=== PATIENT | male | born 1955 | race Caucasian/White ===

== ENCOUNTER 2020-02-29 12:20 | Emergency (ER) | payer BC ==
[2020-02-29] MEDS: Lidocaine 1% 30 ML SDV INJECT ONE (12:40)
--- NOTE | 2020-02-29 13:05 | EDM.PDOC ---
ED HPI GENERAL MEDICAL PROBLEM - General Chief Complaint: Laceration Time Seen by Provider: 02/29/20 12:35 Source of Information: Reports: Patient History Limitations: Reports: No Limitations - History of Present Illness INITIAL COMMENTS - FREE TEXT/NARRATIVE: Pt. sustained a laceration to palm of L hand. He was drilling through metal. The metal started spinning on the bit and cut his hand. Injury is isolated to palm of L hand. Tetanus is UTD. Onset: Today Onset Date: 02/29/20 Location: Reports: Upper Extremity, Left Quality: Reports: Sharp Left Hand Pain Score (Numeric/FACES): 6 - Related Data Allergies Allergy/AdvReac Type Severity Reaction Status Date / Time No Known Allergies Allergy Verified 02/29/20 12:26 Home Meds: Home Meds . [No Known Home Meds] 02/29/20 [History] Past Medical History - Past Health History Medical/Surgical History: Denies Medical/Surgical History Social & Family History - Tobacco Use Smoking Status *Q: Never Smoker ED ROS GENERAL - Review of Systems Review Of Systems: Comprehensive ROS is negative, except as noted in HPI. ED EXAM, SKIN/RASH Exam: See Below Exam Limited By: No Limitations General Appearance: Alert, WD/WN, No Apparent Distress Extremities: Other (4 cm laceration to palm of L hand near base of thumb. No injury to underlying structures. CMS intact. ROM is normal. ) Neurological: Alert, Oriented, CN II-XII Intact, Normal Cognition ED SKIN PROCEDURES - Laceration/Wound Repair Left Hand Appearance: Subcutaneous, Clean Distal NVT: Neuro & Vascular Intact, No Tendon Injury Anesthetic Type: Local Local Anesthesia - Lidocaine (Xylocaine): 1% Plain Local Anesthetic Volume: 4cc Skin Prep: Chlorhexidine (Hibiciens), Saline Exploration/Debridement/Repair: Wound Explored, Explored to Base Closed with: Sutures Lac/Wound length In cm: 4 Suture Size: 4-0 # of Sutures: 4 Suture Type: Nylon Course - Vital Signs Last Recorded V/S: Last Vital Signs Temp 35.9 C L 02/29/20 12:26 Pulse 65 02/29/20 12:26 Resp 16 02/29/20 12:26 BP 163/78 H 02/29/20 12:26 Pulse Ox 96 02/29/20 12:26 - Orders/Labs/Meds Meds: Medications Discontinued Medications Generic Name Dose Route Start Last Admin Trade Name Brea PRN Reason Stop Dose Admin Lidocaine HCl 30 ml 02/29/20 12:33 02/29/20 12:40 Xylocaine-Mpf 1% INJECT 02/29/20 12:34 30 ml ONETIME ONE Administration Departure - Departure Time of Disposition: 13:04 Disposition: Home, Self-Care 01 Clinical Impression: Laceration - Discharge Information Instructions: Laceration Care, Adult Referrals: Neetu Patterson DO [Primary Care Provider] - Forms: ED Department Discharge Additional Instructions: Keep dressing on for 24 hours. After this, keep open to air as much as possible. Sutures removal in clinic in 12 days, sooner if redness, swelling, or discharge from the area. Sepsis Event Note - Evaluation Sepsis Screening Result: No Definite Risk - Focused Exam Vital Signs: Vital Signs Temp Pulse Resp BP Pulse Ox 02/29/20 12:26 35.9 C L 65 16 163/78 H 96 Date Exam was Performed: 02/29/20 Time Exam was Performed: 12:59 - Problem List Review Problem List Initiated/Reviewed/Updated: Yes - Assessment/Plan Plan: Keep dressing on for 24 hours. After this, keep open to air as much as possible. Sutures removal in clinic in 12 days, sooner if redness, swelling, or discharge from the area.
== END 2020-02-29 13:10 | disposition home or self-care (01) ==
LOC: VM.ED 12:20
DX: S61.412A Laceration without foreign body of left hand, initial encounter (principal); W26.8XXA Contact with other sharp object(s), not elsewhere classified, initial encounter
CPT/HCPCS: 12002; 99282-25; J2001

== ENCOUNTER 2021-07-25 13:36 | Emergency (ER) | payer BC ==
[2021-07-25] MEDS ORDERED: Sodium Chloride 0.9% 10 ML Syringe FLUSH PRN (13:58)
--- NOTE | 2021-07-25 14:05 | EDM.PDOC ---
ED HPI GENERAL MEDICAL PROBLEM - General Chief Complaint: Drug or Alcohol Abuse Stated Complaint: CONFUSED Time Seen by Provider: 07/25/21 13:44 Source of Information: Reports: Patient, Family - History of Present Illness INITIAL COMMENTS - FREE TEXT/NARRATIVE: Jarret is a 65 y/o male who is brought to the ER by his family today for a 3 day history of confusion and could sx. 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 He is unsure why, but reports since he got home on Monday, he has hardly eaten anything and has been coughing. He does admit to drinking alcohol over the last few days. He has been confused for family and quite unsteady. He has however had a problem with his balance since he had COVID in 2019. No fever. He does have high blood pressure and has taken his meds. Only other med he has taken is ibuprofen. reports that he has not been showering and she assisted him today to shower prior to coming to the ER. - Related Data Allergies Allergy/AdvReac Type Severity Reaction Status Date / Time No Known Allergies Allergy Verified 07/25/21 14:08 Home Meds: Home Meds Benzonatate 100 - 200 mg PO Q8H PRN #60 capsule 07/25/21 [Rx] lisinopriL [Lisinopril] 20 mg PO DAILY 07/25/21 [History] Past Medical History - Past Health History Medical/Surgical History: Denies Medical/Surgical History Review of Systems - Review of Systems Review Of Systems: See Below Constitutional: Reports: No Symptoms Eyes: Reports: No Symptoms Ears: Reports: No Symptoms Nose: Reports: No Symptoms Mouth/Throat: Reports: No Symptoms Respiratory: Reports: Cough Cardiovascular: Reports: No Symptoms GI/Abdominal: Reports: Decreased Appetite Genitourinary: Reports: No Symptoms Musculoskeletal: Reports: No Symptoms Skin: Reports: No Symptoms Neurological: Reports: Confusion, Difficulty Walking Psychiatric: Reports: Confusion ED EXAM, GENERAL - Physical Exam Exam: See Below General Appearance: Alert, WD/WN (adult male, dressed apprpriately and answers questions. ), No Apparent Distress, Other (Smells fo ETOH.) Eye Exam: Bilateral Eye: PERRL Ears: Normal External Exam, Normal Canal, Hearing Grossly Normal, Normal TMs Nose: Normal Inspection, Normal Mucosa Throat/Mouth: Normal Inspection, Normal Lips, Normal Oropharynx, Normal Voice Head: Atraumatic, Normocephalic Neck: Normal Inspection, Supple, Non-Tender Respiratory/Chest: No Respiratory Distress, Lungs Clear, Chest Non-Tender, Other (Note occasional cough) Cardiovascular: Normal Peripheral Pulses, Regular Rate, Rhythm, No Murmur GI/Abdominal: Normal Bowel Sounds, Soft, Non-Tender (Male) Exam: Deferred Rectal (Males) Exam: Deferred Back Exam: Normal Inspection, Full Range of Motion Extremities: Normal Inspection, Normal Range of Motion, Normal Capillary Refill Neurological: Alert, CN II-XII Intact, Normal Cognition Psychiatric: Normal Affect Skin Exam: Warm, Dry, Intact, Normal Color, No Rash #1 Interpretation EKG Date: 07/25/21 Time: 14:20 Rhythm: NSR Rate (Beats/Min): 65 [place]: Normal P-Wave: Present QRS: Normal ST-T: Normal QT: Normal EKG Interpretation Comments: NSR Course - Vital Signs Text/Narrative:: The patient was seen by the [facility]. Labs and CT ordered. Suspect heavy ETOH use, but will exclude other causes of confusion. 1520 COVID=positive. XR Chest negative, Head CT negative. Other labs pending. 1540 Note FOOV=741. Suspect ETOH as reason for confusion. Lactic Acid elevated at 3.4, but BUN=31, suspect dehydration. CRP=5.1, mostly likely early in COVID course. Findings discussed with the patient and his family. Will give him a liter of NS and thiamine 100mg IVP. 1655 IV fluids done. Clinically sober and can walk in room and talk and answer questions. Will send home with Albuterol inhaler. Written instructions were given and the patient left the ER in stable condition. Last Recorded V/S: Last Vital Signs Temp 36.6 C 07/25/21 13:36 Pulse 82 07/25/21 13:36 Resp 16 07/25/21 13:36 BP 130/73 07/25/21 13:36 Pulse Ox 94 L 07/25/21 13:36 - Orders/Labs/Meds Orders: Active Orders 24 hr Category Date Time Status Saline Lock Insert [OM.PC] Stat Oth 07/25/21 13:59 Ordered Labs: Laboratory Tests 07/25/21 07/25/21 07/25/21 Range/Units 14:30 14:36 14:36 WBC 7.3 (4.0-10.0) x10^3/uL RBC 4.25 L (4.5-6.0) x10^6/uL Hgb 16.1 (14.0-18.0) g/dL Hct 42.9 (40.0-52.0) % MCV 100.9 H (78.0-93.0) fL MCH 37.9 H (26.0-32.0) pg MCHC 37.5 H (32.0-36.0) g/dL RDW Coeff of Vero 13.2 (10.0-15.0) % Plt Count 221 (130-400) x10^3/uL Immature Gran % (Auto) 0.40 (0.00-0.43) % Neut % (Auto) 54.3 (50.0-80.0) % Lymph % (Auto) 33.3 (25.0-50.0) % [place] % (Auto) 11.6 H (2.0-11.0) % Eos % (Auto) 0.0 (0.0-4.0) % Baso % (Auto) 0.4 (0.2-1.2) % Neut # (Auto) 4.0 (1.8-7.7) x10^3/uL Lymph # (Auto) 2.4 (1.0-4.8) x10^3/uL [place] # (Auto) 0.9 H (0.0-0.8) x10^3/uL Eos # (Auto) 0.0 (0.0-0.5) x10^3/uL Baso # (Auto) 0.0 (0.0-0.2) x10^3/uL Immature Gran # (Auto) 0.03 (0.00-0.07) x10^3/uL Sodium 146 H (136-145) mmol/L Potassium 4.4 (3.5-5.1) mmol/L Chloride 108 H (98-107) mmol/L Carbon Dioxide 24 (21-32) mmol/L Anion Gap 18.4 H (5-15) mmol/L BUN 31 H (7-18) mg/dL Creatinine 1.0 (0.70-1.30) mg/dL Est Cr Clr Drug Dosing TNP Estimated GFR (MDRD) > 60 Glucose 131 H (70-99) mg/dL Lactic Acid (0.4-2.0) mmol/L Calcium 9.4 (8.5-10.1) mg/dL Corrected Calcium 10.0 (8.5-10.1) mg/dL Magnesium 2.2 (1.8-2.4) mg/dL Total Bilirubin 0.3 (0.2-1.0) mg/dL AST 68 H (15-37) U/L ALT 46 (16-63) U/L Alkaline Phosphatase 79 (46-116) U/L Troponin I High Sens 8 (<=76) ng/L C-Reactive Protein 5.1 H (<=0.9) mg/dL Total Protein 7.4 (6.4-8.2) g/dL Albumin 3.3 L (3.4-5.0) g/dL Globulin 4.1 Albumin/Globulin Ratio 0.80 Amylase 31 (25-115) U/L Lipase 128 (73-393) U/L TSH, Ultra Sensitive 0.340 L (0.358-3.74) uIU/mL Urine Color (YELLOW) Urine Appearance (CLEAR) Urine pH (5.0-8.0) Ur Specific [place] Urine Protein (NEGATIVE) mg/dL Urine Glucose (UA) (NEGATIVE) mg/dL Urine Ketones (NEGATIVE) mg/dL Urine Occult Blood (NEGATIVE) Urine Nitrite (NEGATIVE) Urine Bilirubin (NEGATIVE) Urine Urobilinogen (0.2) EU/dL Ur Leukocyte Esterase (NEGATIVE) U Hyaline Cast (Auto) Urine RBC (NOT SEEN) /HPF Urine WBC (NOT SEEN) /HPF Ur Squamous Epith Cells (NOT SEEN) /HPF Urine Bacteria (NOT SEEN) /HPF Granular Casts (Auto) Urine Mucus (NOT SEEN) /LPF Salicylates (2.8-20(Therapeutic)) mg/dL Urine Opiates Screen (NEGATIVE) Ur Buprenorphine Scrn (NEGATIVE) Ur Oxycodone Screen (NEGATIVE) Urine Methadone Screen (NEGATIVE) Acetaminophen 11 (10-30) ug/ml Ur Barbiturates Screen (NEGATIVE) Ur Phencyclidine Scrn (NEGATIVE) Ur Amphetamine Screen (NEGATIVE) U Methamphetamines Scrn (NEGATIVE) Urine MDMA Screen (NEGATIVE) U Benzodiazepines Scrn (NEGATIVE) U Cocaine Metab Screen (NEGATIVE) U Marijuana (THC) Screen (NEGATIVE) Ethyl Alcohol 313 H* (0-3) mg/dL SARS CoV-2 RNA Rapid ESTEBAN Positive H (NEGATIVE) 07/25/21 07/25/21 07/25/21 Range/Units 14:36 14:36 14:41 WBC (4.0-10.0) x10^3/uL RBC (4.5-6.0) x10^6/uL Hgb (14.0-18.0) g/dL Hct (40.0-52.0) % MCV (78.0-93.0) fL MCH (26.0-32.0) pg MCHC (32.0-36.0) g/dL RDW Coeff of Vero (10.0-15.0) % Plt Count (130-400) x10^3/uL Immature Gran % (Auto) (0.00-0.43) % Neut % (Auto) (50.0-80.0) % Lymph % (Auto) (25.0-50.0) % [place] % (Auto) (2.0-11.0) % Eos % (Auto) (0.0-4.0) % Baso % (Auto) (0.2-1.2) % Neut # (Auto) (1.8-7.7) x10^3/uL Lymph # (Auto) (1.0-4.8) x10^3/uL [place] # (Auto) (0.0-0.8) x10^3/uL Eos # (Auto) (0.0-0.5) x10^3/uL Baso # (Auto) (0.0-0.2) x10^3/uL Immature Gran # (Auto) (0.00-0.07) x10^3/uL Sodium (136-145) mmol/L Potassium (3.5-5.1) mmol/L Chloride (98-107) mmol/L Carbon Dioxide (21-32) mmol/L Anion Gap (5-15) mmol/L BUN (7-18) mg/dL Creatinine (0.70-1.30) mg/dL Est Cr Clr Drug Dosing Estimated GFR (MDRD) Glucose (70-99) mg/dL Lactic Acid 3.6 H* (0.4-2.0) mmol/L Calcium (8.5-10.1) mg/dL Corrected Calcium (8.5-10.1) mg/dL Magnesium (1.8-2.4) mg/dL Total Bilirubin (0.2-1.0) mg/dL AST (15-37) U/L ALT (16-63) U/L Alkaline Phosphatase (46-116) U/L Troponin I High Sens (<=76) ng/L C-Reactive Protein (<=0.9) mg/dL Total Protein (6.4-8.2) g/dL Albumin (3.4-5.0) g/dL Globulin Albumin/Globulin Ratio Amylase (25-115) U/L Lipase (73-393) U/L TSH, Ultra Sensitive (0.358-3.74) uIU/mL Urine Color Yellow (YELLOW) Urine Appearance Clear (CLEAR) Urine pH 5.5 (5.0-8.0) Ur Specific [place] 1.020 Urine Protein 30 H (NEGATIVE) mg/dL Urine Glucose (UA) Negative (NEGATIVE) mg/dL Urine Ketones Negative (NEGATIVE) mg/dL Urine Occult Blood Negative (NEGATIVE) Urine Nitrite Negative (NEGATIVE) Urine Bilirubin Negative (NEGATIVE) Urine Urobilinogen 0.2 (0.2) EU/dL Ur Leukocyte Esterase Negative (NEGATIVE) U Hyaline Cast (Auto) Moderate Urine RBC 0-5 (NOT SEEN) /HPF Urine WBC Not seen (NOT SEEN) /HPF Ur Squamous Epith Cells Not seen (NOT SEEN) /HPF Urine Bacteria Few H (NOT SEEN) /HPF Granular Casts (Auto) Few Urine Mucus Few H (NOT SEEN) /LPF Salicylates 1.2 L (2.8-20(Therapeutic)) mg/dL Urine Opiates Screen (NEGATIVE) Ur Buprenorphine Scrn (NEGATIVE) Ur Oxycodone Screen (NEGATIVE) Urine Methadone Screen (NEGATIVE) Acetaminophen (10-30) ug/ml Ur Barbiturates Screen (NEGATIVE) Ur Phencyclidine Scrn (NEGATIVE) Ur Amphetamine Screen (NEGATIVE) U Methamphetamines Scrn (NEGATIVE) Urine MDMA Screen (NEGATIVE) U Benzodiazepines Scrn (NEGATIVE) U Cocaine Metab Screen (NEGATIVE) U Marijuana (THC) Screen (NEGATIVE) Ethyl Alcohol (0-3) mg/dL SARS CoV-2 RNA Rapid ESTEBAN (NEGATIVE) 07/25/21 Range/Units 14:41 WBC (4.0-10.0) x10^3/uL RBC (4.5-6.0) x10^6/uL Hgb (14.0-18.0) g/dL Hct (40.0-52.0) % MCV (78.0-93.0) fL MCH (26.0-32.0) pg MCHC (32.0-36.0) g/dL RDW Coeff of Vero (10.0-15.0) % Plt Count (130-400) x10^3/uL Immature Gran % (Auto) (0.00-0.43) % Neut % (Auto) (50.0-80.0) % Lymph % (Auto) (25.0-50.0) % [place] % (Auto) (2.0-11.0) % Eos % (Auto) (0.0-4.0) % Baso % (Auto) (0.2-1.2) % Neut # (Auto) (1.8-7.7) x10^3/uL Lymph # (Auto) (1.0-4.8) x10^3/uL [place] # (Auto) (0.0-0.8) x10^3/uL Eos # (Auto) (0.0-0.5) x10^3/uL Baso # (Auto) (0.0-0.2) x10^3/uL Immature Gran # (Auto) (0.00-0.07) x10^3/uL Sodium (136-145) mmol/L Potassium (3.5-5.1) mmol/L Chloride (98-107) mmol/L Carbon Dioxide (21-32) mmol/L Anion Gap (5-15) mmol/L BUN (7-18) mg/dL Creatinine (0.70-1.30) mg/dL Est Cr Clr Drug Dosing Estimated GFR (MDRD) Glucose (70-99) mg/dL Lactic Acid (0.4-2.0) mmol/L Calcium (8.5-10.1) mg/dL Corrected Calcium (8.5-10.1) mg/dL Magnesium (1.8-2.4) mg/dL Total Bilirubin (0.2-1.0) mg/dL AST (15-37) U/L ALT (16-63) U/L Alkaline Phosphatase (46-116) U/L Troponin I High Sens (<=76) ng/L C-Reactive Protein (<=0.9) mg/dL Total Protein (6.4-8.2) g/dL Albumin (3.4-5.0) g/dL Globulin Albumin/Globulin Ratio Amylase (25-115) U/L Lipase (73-393) U/L TSH, Ultra Sensitive (0.358-3.74) uIU/mL Urine Color (YELLOW) Urine Appearance (CLEAR) Urine pH (5.0-8.0) Ur Specific [place] Urine Protein (NEGATIVE) mg/dL Urine Glucose (UA) (NEGATIVE) mg/dL Urine Ketones (NEGATIVE) mg/dL Urine Occult Blood (NEGATIVE) Urine Nitrite (NEGATIVE) Urine Bilirubin (NEGATIVE) Urine Urobilinogen (0.2) EU/dL Ur Leukocyte Esterase (NEGATIVE) U Hyaline Cast (Auto) Urine RBC (NOT SEEN) /HPF Urine WBC (NOT SEEN) /HPF Ur Squamous Epith Cells (NOT SEEN) /HPF Urine Bacteria (NOT SEEN) /HPF Granular Casts (Auto) Urine Mucus (NOT SEEN) /LPF Salicylates (2.8-20(Therapeutic)) mg/dL Urine Opiates Screen Negative (NEGATIVE) Ur Buprenorphine Scrn Negative (NEGATIVE) Ur Oxycodone Screen Negative (NEGATIVE) Urine Methadone Screen Negative (NEGATIVE) Acetaminophen (10-30) ug/ml Ur Barbiturates Screen Negative (NEGATIVE) Ur Phencyclidine Scrn Negative (NEGATIVE) Ur Amphetamine Screen Negative (NEGATIVE) U Methamphetamines Scrn Negative (NEGATIVE) Urine MDMA Screen Negative (NEGATIVE) U Benzodiazepines Scrn Negative (NEGATIVE) U Cocaine Metab Screen Negative (NEGATIVE) U Marijuana (THC) Screen Negative (NEGATIVE) Ethyl Alcohol (0-3) mg/dL SARS CoV-2 RNA Rapid ESTEBAN (NEGATIVE) Meds: Medications Discontinued Medications Generic Name Dose Route Start Last Admin Trade Name Freq PRN Reason Stop Dose Admin Albuterol 1 packet 07/25/21 16:41 07/25/21 16:57 Take Home: Albuterol 18 Gm Inhaler, 1 Inhaler Pack INH 1 inhaler Q4H PRN Administration Shortness of Breath Sodium Chloride 1,000 mls @ 999 mls/hr 07/25/21 15:43 07/25/21 16:01 Normal Saline IV 07/25/21 16:43 999 mls/hr ONETIME ONE Administration Sodium Chloride 10 ml 07/25/21 13:58 Sodium Chloride 0.9% 10 Ml Syringe FLUSH ASDIRECTED PRN Keep Vein Open Thiamine HCl 100 mg 07/25/21 15:43 07/25/21 16:01 Thiamine 200 Mg/2 Ml Mdv IV 07/25/21 15:44 100 mg ONETIME ONE Administration - Radiology Interpretation Free Text/Narrative:: CT Head WO=negative XR Chest 1V=no acute findings Departure - Departure Time of Disposition: 17:00 Disposition: Home, Self-Care 01 Condition: Good Clinical Impression: Alcohol abuse with intoxication, COVID-19 - Discharge Information *PRESCRIPTION DRUG MONITORING PROGRAM REVIEWED*: No *COPY OF PRESCRIPTION DRUG MONITORING REPORT IN PATIENT HALIMA: No Prescriptions: Benzonatate 100 - 200 mg PO Q8H PRN #60 capsule PRN Reason: Cough Instructions: 10 Things You Can Do to Manage Your COVID-19 Symptoms at Home - [facility] (04/23/2021), Alcohol Intoxication Referrals: Neetu Patterson, [Primary Care Provider] - Forms: ED Department Discharge Additional Instructions: -STOP DRINKING ALCOHOL. If you start drinking again, the process of getting sober and withdrawing starts over. -Consider getting into rehab to stop drinking -Eat as you feel able. -Stay well hydrated. -Follow up with your Primary Care Provider for further issues when you are sober. -Return as needed to the ER for any other concerns -Ibuprofen /Acetaminophen as needed or any over the counter meds as needed -Benzonate Capsules 1-2 caps oral every 8 hours as needed for cough #60 (Rx) -Albuterol Inhaler 2 puffs every 4 hours as needed for cough/shortness of breath #8.5gm(Rx) -Drink plenty of fluids -Rest -Quarantine for 14 days from exposure and monitor for symptoms. -Return to the ER or clinic if your condition is not improving as expected or you have any worsening of symptoms that you are unable to manage at home. -See COVID Home Instruction Sheet below Sepsis Event Note (ED) - Focused Exam Vital Signs: Vital Signs Temp Pulse Resp BP Pulse Ox 07/25/21 13:36 36.6 C 82 16 130/73 94 L - My Orders Last 24 Hours: My Active Orders 07/25/21 13:59 Saline Lock Insert [OM.PC] Stat - Assessment/Plan Last 24 Hours: My Active Orders 07/25/21 13:59 Saline Lock Insert [OM.PC] Stat
--- NOTE | 2021-07-25 14:39 | CT ---
[id number] CT/CT Head WO IV EXAM: CT Head WO IV CLINICAL DATA: CONFUSION. COMPARISON STUDY: None FINDINGS: No intracranial hemorrhage, extra-axial fluid collection, mass, or acute ischemia. Generalized parenchymal atrophy with scattered areas of nonspecific white matter disease, commonly seen as sequela of chronic microvascular ischemia. Soft tissues are unremarkable. Moderate paranasal sinus disease. The mastoid air cells are well aerated and clear. IMPRESSION: No acute intracranial findings. Patrice Talley DO 07/25/21 [id number] Thank you for allowing us to participate in the care of your patient.
--- NOTE | 2021-07-25 14:40 | CR ---
[id number] RAD/RAD Chest PA or AP 1V EXAM: RAD Chest PA or AP 1V INDICATION: CONFUSION. COMPARISON: None. DISCUSSION: Cardiomediastinal silhouette is normal in size and contour. No infiltrate, effusion, pneumothorax, or edema. IMPRESSION: No acute cardiopulmonary abnormality. Patrice Talley DO 07/25/21 [id number] Thank you for allowing us to participate in the care of your patient.
[2021-07-25 15:05] LABS: BARBITURATE SCREEN,URINE NEGATIVE (NEGATIVE); BENZODIAZEPINES SCREEN,URINE NEGATIVE (NEGATIVE); METHAMPHETAMINE SCREEN, URINE NEGATIVE (NEGATIVE)
[2021-07-25 15:06] LABS: BUPRENORPHINE SCREEN,URINE NEGATIVE (NEGATIVE); THC SCREEN,URINE 50 NG/ML NEGATIVE (NEGATIVE)
[2021-07-25 15:24] LABS: ACETAMINOPHEN 11 ug/ml (10-30); CHLORIDE,CL 108 mmol/L (98-107); SODIUM,NA 146 mmol/L (136-145)
[2021-07-25 15:33] LABS: ANION GAP 18.4 mmol/L (5-15)
[2021-07-25] MEDS: Sodium Chloride 0.9% 1,000 ML IV ONE (16:01)
[2021-07-25] MEDS: Thiamine 200 MG/2 ML MDV IV ONE (16:01)
[2021-07-25] MEDS: Take Home: Albuterol 18 GM Inhaler, 1 Inhaler Pack INH PRN (16:57)
== END 2021-07-25 16:57 | disposition home or self-care (01) ==
LOC: VM.ED 13:36
DX: U07.1 COVID-19 (principal); F10.129 Alcohol abuse with intoxication, unspecified; Z79.899 Other long term (current) drug therapy; Y90.8 Blood alcohol level of 240 mg/100 ml or more
CPT/HCPCS: 36415; 70450; 71045; 80053; 80143; 80179; 80305-QW; 80307; 81001; 82150; 83605; 83690; 83735; 84443; 84484; 85025; 86140; 93005; 93010; 96374; 99284; 99284-25; A9270-GY; J3411; J7030; U0002

== ENCOUNTER 2021-08-03 20:38 | Emergency (ER) | payer BC ==
[2021-08-03] MEDS ORDERED: Sodium Chloride 0.9% 10 ML Syringe FLUSH PRN (20:48)
--- NOTE | 2021-08-03 20:54 | EDM.PDOC ---
ED HPI GENERAL MEDICAL PROBLEM - General Stated Complaint: ER VISIT Time Seen by Provider: 08/03/21 20:41 Source of Information: Reports: Patient, Family - History of Present Illness INITIAL COMMENTS - FREE TEXT/NARRATIVE: Jarret is a 65 y/o male who is brought to the ER tonight by EMS for alcohol withdrawal. He has been heavily drinking whiskey every day since age 18 and then last night about suppertime he took his last drink when he threatened to leave him. He started to feel anxious and agitated today and then symptoms got worse tonight. 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 He has never stopped drinking before. He did try to eat a banana fro supper, but threw it up. He reportedly has been drinking 1/2 of a fifth of whiskey daily for many years. - Related Data Allergies Allergy/AdvReac Type Severity Reaction Status Date / Time No Known Allergies Allergy Verified 07/25/21 14:08 Home Meds: Home Meds Benzonatate 100 - 200 mg PO Q8H PRN #60 capsule 07/25/21 [Rx] lisinopriL [Lisinopril] 20 mg PO DAILY 07/25/21 [History] Past Medical History - Past Health History Medical/Surgical History: Denies Medical/Surgical History Cardiovascular History: Reports: Hypertension Review of Systems - Review of Systems Review Of Systems: See Below Constitutional: Reports: Weakness Eyes: Reports: No Symptoms Ears: Reports: No Symptoms Nose: Reports: No Symptoms Mouth/Throat: Reports: No Symptoms Respiratory: Reports: No Symptoms Cardiovascular: Reports: No Symptoms GI/Abdominal: Reports: Decreased Appetite, Nausea, Vomiting Genitourinary: Reports: No Symptoms Musculoskeletal: Reports: No Symptoms Skin: Reports: No Symptoms Neurological: Reports: Confusion, Tremors, Difficulty Walking Psychiatric: Reports: Anxiety, Agitation ED EXAM, GENERAL - Physical Exam Exam: See Below General Appearance: Alert, WD/WN, No Apparent Distress (Elderly male, andrae ative but also mildly anxious and agitated. He is lying on the ER cart.) Eye Exam: Bilateral Eye: PERRL (1mm) Ears: Normal External Exam, Normal Canal, Hearing Grossly Normal Nose: Normal Inspection, Normal Mucosa Throat/Mouth: Normal Lips, Normal Oropharynx (slightly dry), Normal Voice Head: Atraumatic, Normocephalic Neck: Normal Inspection, Supple Respiratory/Chest: No Respiratory Distress, Lungs Clear Cardiovascular: Normal Peripheral Pulses, Regular Rate, Rhythm GI/Abdominal: Normal Bowel Sounds, Soft, Non-Tender (Male) Exam: Deferred Rectal (Males) Exam: Deferred Back Exam: Normal Inspection Extremities: Normal Inspection, Normal Range of Motion, No Pedal Edema, Normal Capillary Refill Neurological: Alert, Oriented, CN II-XII Intact, Other (CIWA score=19) Psychiatric: Anxious Skin Exam: Warm, Dry, Intact, Normal Color Lymphatic: No Adenopathy #1 Interpretation EKG Date: 08/03/21 Time: 21:31 Rhythm: NSR Rate (Beats/Min): 65 [place]: Normal P-Wave: Present QRS: Normal ST-T: Normal QT: Normal EKG Interpretation Comments: Sinus Rhythm Course - Vital Signs Text/Narrative:: 2040 The patient was seen by the AIRPLANE AND ENGINE INSPECTOR. Labs ordered. IV fluids were infusing on arrival and he had been given Zofran enroute. Thiamine 100mg IVP and Lorazepam 2 mg IVP ordered. CIWA score quite high on arrival. 2135 [facility] contacted for transfer, no beds available. 2136 [facility] contacted for transfer, no beds available. [address] [facility] contacted for transfer, no beds available. 2138 [facility] contacted for transfer, no beds available. 2139 Attempted to call the [facility], msg left. 2144 Dr Tucker contacted and inquired regarding acute admission here. MD declined to admit this patient to Acute Care. 2147 [facility] contacted for transfer, no beds available. 2151 [facility] contacted for transfer, no beds available. 2157 Windy Pavon, practical nursing teacher/adminstration, notified of current staffing/census issue. 2203 [facility] returned call and patient placed on list for transfer. 2208 Resting currently. Family remains at bedside. CIWA=2-3. 0045 Patient resting. No beds available at this time. No staff available to admit this patient to Acute Care here at . inquires about taking patient home with oral meds. Reports she has good family support. Will attempt to have patient ambulate and void. 0105 Patient able to get up with stand by assistance and ambulate to the bathroom. Able to void. Patient's feels comfortable taking him home with oral Lorazepam. AIRPLANE AND ENGINE INSPECTOR discussed severe alcohol withdrawal and course of symptoms and need to return to the ER. Will send the patient home with Lorazepam. Written instructions were given to the patient's who assumes care of patient. Patient left the ER in stable condition with his . - Orders/Labs/Meds Orders: Active Orders 24 hr Category Date Time Status CIWAA Assessment [RC] Q1H Care 08/03/21 20:49 Active EKG Documentation Completion [RC] STAT Care 08/03/21 20:48 Active DRUG SCREEN, URINE [URCHEM] Stat Lab 08/03/21 20:49 Ordered UA RFX RONNY AND CULT IF INDIC [URIN] Stat Lab 08/03/21 20:48 Ordered URINE DRUG SCREEN,POC [POC] Stat Lab 08/03/21 20:48 Ordered LORazepam [Ativan] Med 08/03/21 23:57 Active 1 - 2 mg IVPUSH Q1H PRN LORazepam [Take Home: LORazepam 0.5 MG, 2 Tab Pack] Med 08/04/21 01:10 Once 2 packet PO ONETIME ONE Sodium Chloride 0.9% [Normal Saline] 1,000 ml Med 08/03/21 23:24 Active IV ONETIME Sodium Chloride 0.9% [Saline Flush] Med 08/03/21 20:48 Active 10 ml FLUSH ASDIRECTED PRN Saline Lock Insert [OM.PC] Stat Oth 08/03/21 20:48 Ordered Medication Orders Sodium Chloride (Normal Saline) 1,000 mls @ 150 mls/hr IV ONETIME ONE Stop: 08/04/21 06:03 Lorazepam (Lorazepam 2 Mg/Ml Sdv) 1 - 2 mg IVPUSH Q1H PRN PRN Reason: Psychosis Sodium Chloride (Sodium Chloride 0.9% 10 Ml Syringe) 10 ml FLUSH ASDIRECTED PRN PRN Reason: Keep Vein Open Labs: Laboratory Tests 08/03/21 08/03/21 08/03/21 Range/Units 20:57 20:57 20:57 WBC 10.3 H (4.0-10.0) x10^3/uL RBC 4.18 L (4.5-6.0) x10^6/uL Hgb 14.0 D (14.0-18.0) g/dL Hct 40.6 (40.0-52.0) % MCV 97.1 H D (78.0-93.0) fL MCH 33.5 H (26.0-32.0) pg MCHC 34.5 (32.0-36.0) g/dL RDW Coeff of Vero 11.8 (10.0-15.0) % Plt Count 195 (130-400) x10^3/uL Immature Gran % (Auto) 0.80 H (0.00-0.43) % Neut % (Auto) 80.0 (50.0-80.0) % Lymph % (Auto) 10.2 L (25.0-50.0) % [place] % (Auto) 8.9 (2.0-11.0) % Eos % (Auto) 0.0 (0.0-4.0) % Baso % (Auto) 0.1 L (0.2-1.2) % Neut # (Auto) 8.3 H (1.8-7.7) x10^3/uL Lymph # (Auto) 1.1 (1.0-4.8) x10^3/uL [place] # (Auto) 0.9 H (0.0-0.8) x10^3/uL Eos # (Auto) 0.0 (0.0-0.5) x10^3/uL Baso # (Auto) 0.0 (0.0-0.2) x10^3/uL Immature Gran # (Auto) 0.08 H (0.00-0.07) x10^3/uL Sodium 145 (136-145) mmol/L Potassium 5.7 H (3.5-5.1) mmol/L Chloride 103 (98-107) mmol/L Carbon Dioxide 32 (21-32) mmol/L Anion Gap 15.7 H (5-15) mmol/L BUN 31 H (7-18) mg/dL Creatinine 1.0 (0.70-1.30) mg/dL Est Cr Clr Drug Dosing TNP Estimated GFR (MDRD) > 60 Glucose 219 H (70-99) mg/dL Calcium 9.7 (8.5-10.1) mg/dL Corrected Calcium 10.4 H (8.5-10.1) mg/dL Magnesium 1.8 (1.8-2.4) mg/dL Total Bilirubin 1.0 (0.2-1.0) mg/dL AST 78 H (15-37) U/L ALT 66 H (16-63) U/L Alkaline Phosphatase 105 (46-116) U/L Troponin I High Sens 7 (<=76) ng/L Total Protein 7.2 (6.4-8.2) g/dL Albumin 3.1 L (3.4-5.0) g/dL Globulin 4.1 Albumin/Globulin Ratio 0.76 Amylase 27 (25-115) U/L Lipase 107 (73-393) U/L TSH, Ultra Sensitive 0.732 (0.358-3.74) uIU/mL Salicylates 0.6 L (2.8-20(Therapeutic)) mg/dL Acetaminophen 0 L (10-30) ug/ml Ethyl Alcohol < 3 (0-3) mg/dL Meds: Medications Generic Name Dose Route Start Last Admin Trade Name Freq PRN Reason Stop Dose Admin Sodium Chloride 1,000 mls @ 150 mls/hr 08/03/21 23:24 Normal Saline IV 08/04/21 06:03 ONETIME ONE Lorazepam 1 - 2 mg 08/03/21 23:57 Lorazepam 2 Mg/Ml Sdv IVPUSH Q1H PRN Psychosis Sodium Chloride 10 ml 08/03/21 20:48 Sodium Chloride 0.9% 10 Ml Syringe FLUSH ASDIRECTED PRN Keep Vein Open Discontinued Medications Generic Name Dose Route Start Last Admin Trade Name Freq PRN Reason Stop Dose Admin Sodium Chloride 1,000 mls @ 999 mls/hr 08/03/21 20:46 08/03/21 21:05 Normal Saline IV 08/03/21 21:46 999 mls/hr ONETIME ONE Administration Lorazepam 2 mg 08/03/21 20:46 08/03/21 21:05 Lorazepam 2 Mg/Ml Sdv IVPUSH 08/03/21 20:47 2 mg STAT ONE Administration Thiamine HCl 100 mg 08/03/21 20:47 Thiamine 200 Mg/2 Ml Mdv IVPUSH 08/03/21 20:48 ONETIME ONE Departure - Departure Time of Disposition: 01:11 Disposition: Home, Self-Care 01 Clinical Impression: Alcohol withdrawal syndrome Qualifiers: Complication of substance-induced condition: uncomplicated Qualified Code(s): F10.230 - Alcohol dependence with withdrawal, uncomplicated - Discharge Information Instructions: Alcohol Withdrawal Syndrome, Finding Treatment for Addiction, Lorazepam tablets Referrals: Neetu Patterson DO [Primary Care Provider] - Additional Instructions: -Lorazepam 0.5mg 1-2 tablets oral every 2 hours as needed for agitation.withdrawal #4(ER) -Stay hydrated -Rest -Make an appt to be seen at the [facility] later this afternoon -Return to the ER for any concerns or worsening of your withdrawal - Problem List & Annotations (1) Alcohol withdrawal syndrome SNOMED Code(s): 518870377 Code(s): F10.239 - ALCOHOL DEPENDENCE WITH WITHDRAWAL, UNSPECIFIED Status: Acute Current Visit: Yes Annotation/Comment:: Multiple attempts to get patient placed for inpatient care made. No acute beds available here at . Patient had rested in the ER with Lorazepam on board and then could ambulate to the bathroom with satand by assist. to assume care and wants to take patiet home. Lorazepam po sent with pt and hten -patient to follow up at [facility] later today. Qualifiers: Complication of substance-induced condition: uncomplicated Qualified Code(s): F10.230 - Alcohol dependence with withdrawal, uncomplicated - My Orders Last 24 Hours: My Active Orders 08/03/21 20:48 EKG Documentation Completion [RC] STAT UA RFX RONNY AND CULT IF INDIC [URIN] Stat URINE DRUG SCREEN,POC [POC] Stat Sodium Chloride 0.9% [Saline Flush] 10 ml FLUSH ASDIRECTED PRN Saline Lock Insert [OM.PC] Stat 08/03/21 20:49 CIWAA Assessment [RC] Q1H DRUG SCREEN, URINE [URCHEM] Stat 08/03/21 23:24 Sodium Chloride 0.9% [Normal Saline] 1,000 ml IV ONETIME 08/03/21 23:57 LORazepam [Ativan] 1 - 2 mg IVPUSH Q1H PRN 08/04/21 01:10 LORazepam [Take Home: LORazepam 0.5 MG, 2 Tab Pack] 2 packet PO ONETIME ONE - Assessment/Plan Last 24 Hours: My Active Orders 08/03/21 20:48 EKG Documentation Completion [RC] STAT UA RFX RONNY AND CULT IF INDIC [URIN] Stat URINE DRUG SCREEN,POC [POC] Stat Sodium Chloride 0.9% [Saline Flush] 10 ml FLUSH ASDIRECTED PRN Saline Lock Insert [OM.PC] Stat 08/03/21 20:49 CIWAA Assessment [RC] Q1H DRUG SCREEN, URINE [URCHEM] Stat 08/03/21 23:24 Sodium Chloride 0.9% [Normal Saline] 1,000 ml IV ONETIME 08/03/21 23:57 LORazepam [Ativan] 1 - 2 mg IVPUSH Q1H PRN 08/04/21 01:10 LORazepam [Take Home: LORazepam 0.5 MG, 2 Tab Pack] 2 packet PO ONETIME ONE Plan: See above
[2021-08-03] MEDS: LORazepam 2 MG/ML SDV IVPUSH ONE (21:05)
[2021-08-03] MEDS: Sodium Chloride 0.9% 1,000 ML IV ONE ×2 (21:05→22:00)
[2021-08-03 21:25] LABS: CHLORIDE,CL 103 mmol/L (98-107); SODIUM,NA 145 mmol/L (136-145)
[2021-08-03 21:26] LABS: ACETAMINOPHEN 0 ug/ml (10-30); ANION GAP 15.7 mmol/L (5-15)
[2021-08-03] MEDS: Thiamine 200 MG/2 ML MDV IVPUSH ONE (21:30)
[2021-08-03] MEDS ORDERED: LORazepam 2 MG/ML SDV IVPUSH PRN (23:57)
[2021-08-04] MEDS: Take Home: LORazepam 0.5 MG Tab, 2 Tab Pack PO ONE (01:20)
[2021-08-04 06:37] LABS: BARBITURATE SCREEN,URINE NEGATIVE (NEGATIVE); BENZODIAZEPINES SCREEN,URINE POSITIVE (NEGATIVE); BUPRENORPHINE SCREEN,URINE NEGATIVE (NEGATIVE); METHAMPHETAMINE SCREEN, URINE NEGATIVE (NEGATIVE); THC SCREEN,URINE 50 NG/ML NEGATIVE (NEGATIVE)
== END 2021-08-04 01:32 | disposition home or self-care (01) ==
LOC: VM.ED 20:38
DX: F10.230 Alcohol dependence with withdrawal, uncomplicated (principal); I10 Essential (primary) hypertension; Z79.899 Other long term (current) drug therapy; Y90.0 Blood alcohol level of less than 20 mg/100 ml
CPT/HCPCS: 36415; 80053; 80143; 80179; 80305-QW; 80307; 81001; 82150; 83690; 83735; 84443; 84484; 85025; 93005; 93010; 96374; 96375; 99284; 99285-25; A9270-GY; J2060; J3411; J7030

== ENCOUNTER 2021-12-30 12:27 | Emergency (ER) | payer BC, MEDICARE ==
[2021-12-30 13:07] LABS: BARBITURATE SCREEN,URINE NEGATIVE (NEGATIVE)
[2021-12-30 13:08] LABS: BENZODIAZEPINES SCREEN,URINE POSITIVE (NEGATIVE); BUPRENORPHINE SCREEN,URINE NEGATIVE (NEGATIVE); METHAMPHETAMINE SCREEN, URINE NEGATIVE (NEGATIVE); THC SCREEN,URINE 50 NG/ML NEGATIVE (NEGATIVE)
[2021-12-30 13:28] LABS: CHLORIDE,CL 102 mmol/L (98-107); SODIUM,NA 141 mmol/L (136-145)
[2021-12-30 13:30] LABS: ANION GAP 11.7 mmol/L (5-15)
[2021-12-30 13:42] LABS: CORONAVIRUS COVID-19 NAA NEGATIVE (NEGATIVE); RESPIRATORY SYNCYTIAL VIR NAA NEGATIVE (NEGATIVE)
[2021-12-30 13:44] LABS: ACETAMINOPHEN 0 ug/ml (10-30)
== END 2021-12-30 14:22 ==
LOC: VM.ED 12:27
DX: Z00.8 Encounter for other general examination (principal); Z20.822 Contact with and (suspected) exposure to COVID-19
CPT/HCPCS: 0241U; 36415; 80053; 80143; 80305; 80307; 81001; 83735; 84100; 84443; 85025; 85610; 85730; 86140; 99284; 99283

== ENCOUNTER 2022-07-21 11:10 | Emergency (ER) | payer MEDICARE, BC ==
[2022-07-21] MEDS ORDERED: Sodium Chloride 0.9% 10 ML Syringe FLUSH PRN (11:45)
[2022-07-21] MEDS ORDERED: Ondansetron 4 MG/2 ML SDV ONE (11:46)
[2022-07-21] MEDS ORDERED: Sodium Chloride 0.9% 1,000 ML IV ONE ×2 (12:07→13:01)
[2022-07-21 12:15] LABS: ANION GAP 16.3 mmol/L (5-15)
[2022-07-21] MEDS ORDERED: cefTRIAXone 1 GM Vial IVPUSH ONE (12:19)
[2022-07-21 12:55] LABS: CORONAVIRUS COVID-19 NAA NEGATIVE (NEGATIVE)
[2022-07-21] MEDS ORDERED: LORazepam 2 MG/ML SDV IVPUSH ONE (15:09)
[2022-07-21] MEDS ORDERED: Nicotine 14 MG/24 Hr Patch TRDERM ONE (15:41)
[2022-07-21] MEDS ORDERED: Sodium Chloride 0.9% 500 ML IV ONE (16:20)
== END 2022-07-21 16:28 | disposition short-term general hospital (02) ==
LOC: VM.ED 11:10
DX: R16.0 Hepatomegaly, not elsewhere classified (principal); R41.3 Other amnesia; F10.230 Alcohol dependence with withdrawal, uncomplicated; I10 Essential (primary) hypertension; R74.02 Elevation of levels of lactic acid dehydrogenase [LDH]; Z79.899 Other long term (current) drug therapy; Z20.822 Contact with and (suspected) exposure to COVID-19
CPT/HCPCS: 0240U; 36415; 80053; 80307; 81001; 82150; 82550; 83605; 83690; 84484; 85025; 93005; 96361; 96374; 96375; 99284; A9270; J0696; J2060; J2405; J7030

== ENCOUNTER 2023-04-04 17:06 | Emergency (ER) | payer MEDICARE, BC ==
[2023-04-04] MEDS ORDERED: cloNIDine 0.1 MG Tab PO ONE (17:20)
[2023-04-04 17:53] LABS: BASOPHILS PERCENT AUTO 0.5 % (0.2-1.2); EOSINOPHILS ABSOLUTE AUTO 0.1 x10^3/uL (0.0-0.5); EOSINOPHILS PERCENT AUTO 0.9 % (0.0-4.0); HEMATOCRIT 35.3 % (40.0-52.0); IMMATURE GRAN ABSOLUTE AUTO 0.03 x10^3/uL (0.00-0.07); LYMPHOCYTES PERCENT AUTO 30.9 % (25.0-50.0); MEAN CORPUSCULAR HEMOGLOBIN 42.3 pg (26.0-32.0); MEAN CORPUSCULAR HGB CONC 39.7 g/dL (32.0-36.0); MEAN CORPUSCULAR VOLUME 106.6 fL (78.0-93.0); MONOCYTES ABSOLUTE AUTO 0.5 x10^3/uL (0.0-0.8); MONOCYTES PERCENT AUTO 7.4 % (2.0-11.0); NEUTROPHILS ABSOLUTE AUTO 3.9 x10^3/uL (1.8-7.7); NEUTROPHILS PERCENT AUTO 59.8 % (50.0-80.0); RED BLOOD CELL COUNT 3.31 x10^6/uL (4.5-6.0); WHITE BLOOD CELL COUNT,WBC 6.5 x10^3/uL (4.0-10.0)
[2023-04-04 18:00] LABS: PLATELET COUNT,PLT 211 x10^3/uL (130-400)
[2023-04-04 18:02] LABS: A/G RATIO 0.97; ALANINE AMINOTRANSFERASE,ALT 66 U/L (16-63); ALBUMIN 3.7 g/dL (3.4-5.0); ALKALINE PHOSPHATASE 106 U/L (46-116); ASPARTATE AMNIOTRANSFERASE,AST 74 U/L (15-37); BILIRUBIN TOTAL 0.7 mg/dL (0.2-1.0); BLOOD UREA NITROGEN,BUN 19 mg/dL (7-18); CALCIUM 9.3 mg/dL (8.5-10.1); CARBON DIOXIDE,CO2 27 mmol/L (21-32); CHLORIDE,CL 106 mmol/L (98-107); CREATININE 1.1 mg/dL (0.70-1.30); GLUCOSE RANDOM 100 mg/dL (70-99); MAGNESIUM 1.6 mg/dL (1.8-2.4); POTASSIUM,K 3.7 mmol/L (3.5-5.1); PROTEIN TOTAL,TP 7.5 g/dL (6.4-8.2); SODIUM,NA 145 mmol/L (136-145); TSH ULTRASENSITIVE 0.647 uIU/mL (0.358-3.74)
[2023-04-04 18:03] LABS: ANION GAP 15.7 mmol/L (5-15); ESTIMATED GFR 74 mL/min (>=60)
== END 2023-04-04 19:01 | disposition home or self-care (01) ==
LOC: VM.ED 17:06
DX: I10 Essential (primary) hypertension (principal); Z79.899 Other long term (current) drug therapy
CPT/HCPCS: 36415; 80053; 83735; 84443; 84484; 85025; 93005; 93010; 99283; 99284; A9270-GY